=== PATIENT | male | born 1985 | race Caucasian/White ===

== ENCOUNTER 2019-06-07 09:33 | Outpatient (CLI) | payer MEDICARE, MEDICAID, SELFPAY ==
--- NOTE | 2019-06-07 | XR_ITS ---
WS: [id number] LATERAL LUMBAR SPINE: 3 view. Lateral radiographs are performed in upright neutral, flexion and extension to the patient's toleranc e. HISTORY: LUMBAR RADICULOPATHY ACUTE COMPARISON: 07/06/2010 Mild straightening of the normal lumbar lordosis. Disc spaces and vertebral body heights are well ali gned. Moderate disc space narrowing at L5-S1. No instability. XR/XR lumbar spine 2-3V* [id number] IMPRESSION: No lumbar spine instability.
== END 2019-06-07 09:34 | disposition home or self-care (01) ==
LOC: RADOUTREAD 12:27
PROVIDERS: Family Provider Family Medicine; PCP Family Medicine; Visit Provider Family Medicine
DX: M54.16 Radiculopathy, lumbar region (principal)

== ENCOUNTER 2019-06-14 08:14 | Outpatient (CLI) | payer MEDICARE, MEDICAID, SELFPAY ==
--- NOTE | 2019-06-14 08:24 | MR_ITS ---
WS: [id number] MRI LUMBAR SPINE NONCONTRAST TECHNIQUE: Sagittal T1, T2 and STIR imaging. Axial T1 and T2 imaging. CLINICAL INFORMATION: ACUTE LUMBAR RADIUCLOPATHY COMPARISON: None. FINDINGS: Mild lumbar curve. No acute compression. Mild disc bulging L3-4 and L4-5 with small disc protrusions. Tiny annular tear L4-5. Schmorl's nodes in the lower thoracic spine. L1-L2: Mild annular bulging. Tiny annular tear. L2-L3: No significant disc bulging. Spinal canal and foramen are patent. L3-L4: No significant disc bulging. Mild facet arthropathy. Spinal canal and foramen are patent. L3-4: Mild disc bulging. Small central protrusion. Slight narrowing of the left subarticular recess. Mild left and no significant right foraminal narrowing. Mild facet arthropathy. L4-5: Small left pericentral protrusion with tiny annular tear. Slight contact of the left L5 nerve r oot. Mild facet arthropathy. L5-S1: L5 is partially sacralized on the left. Spinal canal and foramen are patent. Small central protrusion cervical spine at C5-C6. MR/MR lumbar spine wo con* [id number] IMPRESSION: 1. Mild lumbar curve. No acute compression. No high-grade central canal stenos is. 2. Left pericentral disc protrusion L3-4 slightly contacts the left subarticul ar recess and traversing left L4 nerve root. Mild left foraminal narrowing. 3. Left pericentral protrusion L4-5 with small annular tear. Slight contact of the left L5 nerve root. Spinal canal is patent. 4. Small central protrusion C5-C6 with mild central canal stenosis. 5. L5 is partially sacralized.
== END 2019-06-14 08:15 | disposition home or self-care (01) ==
LOC: RADWPI 08:20
PROVIDERS: Family Provider Family Medicine; PCP Family Medicine; Visit Provider Family Medicine
DX: M54.16 Radiculopathy, lumbar region (principal); M51.26 Other intervertebral disc displacement, lumbar region; M50.222 Other cervical disc displacement at C5-C6 level
CPT/HCPCS: 72148

== ENCOUNTER 2020-06-22 22:34 | Emergency (ER) | payer MEDICARE, MEDICAID, SELFPAY ==
[2020-06-22 22:45] VITALS: BP 164/88; PULSE 76; RESP 20; TEMP 36.8; O2SAT 98; BMI 40.8
[2020-06-22 23:05] VITALS: BP 163/104; PULSE 91; RESP 18; O2SAT 98
--- NOTE | 2020-06-22 23:13 | ECG_ITS ---
[facility] Test Date: 2020-06-22 Pat Name: Florentin Patton Department: Room: Gender: Male Support Team Member: : 1985 Requested By: Victorino Awan Order Number: [id number] Grisel MD: Christopher Recio M.D. Measurements Intervals Louise Rate: 75 P: 49 TN: 133 QRS: 18 QRSD: 81 T: 44 QT: 368 QTc: 412 Interpretive Statements SINUS RHYTHM WITH SINUS ARRHYTHMIA No previous ECG available for comparison Electronically Signed On 06-24-2020 10:59:59 THERMOFORMING OPERATOR by Christopher Recio M.D. [id number]
--- NOTE | 2020-06-22 23:13 | CTR_ITS ---
PROCEDURE INFORMATION: Exam: CT Head Without Contrast Exam date and time: 06/22/2020 11:15 PM Age: 34 years old Clinical indication: Pain; Dizziness; Headache; Additional info: Syncope, headache x 1 month, increased blood pressure, dizziness, nose bleed tonight. TECHNIQUE: Imaging protocol: Computed tomography of the head without contrast. Radiation optimization: All CT scans at this facility use at least one of these dose optimization techniques: automated exposure control; mA and/or kV adjustment per patient size (includes targeted exams where dose is matched to clinical indication); or iterative reconstruction. COMPARISON: CT head wo con* [id number] 12/26/2018 2:41 AM RADIATION DOSE METRICS: Total DLP (mGy-cm): 788.99 FINDINGS: Brain: Normal. No hemorrhage. Unremarkable white matter. No mass effect. Cerebral ventricles: No ventriculomegaly. Bones/joints: Unremarkable. No acute fracture. Paranasal sinuses: Visualized sinuses are unremarkable. No fluid levels. Mastoid air cells: Visualized mastoid air cells are well aerated. Soft tissues: Unremarkable. CT/CT head wo con* [id number] IMPRESSION: No acute intracranial abnormality. Radiation Dose CTDIVOL = (mGy): DLP = 788.99 (mGy-cm)
[2020-06-22 23:28] LABS: Basophils # 0.1 10^3/uL (0.0-0.1); Basophils % 0.7 %; Eosinophils # 0.3 10^3/uL (0.0-0.8); Eosinophils % 3.3 %; Hematocrit 45.4 % (42.0-52.0); Hemoglobin 15.4 g/dL (11.7-16.6); Lymphocytes # 2.7 10^3/uL (0.8-4.8); Lymphocytes % 35.4 %; Mean Corpuscular HGB Conc 33.9 g/dL (30.0-36.0); Mean Corpuscular Volume 88.3 fL (80-94); Mean Platelet Volume 9.9 fL (7.4-10.4); Monocytes # 0.7 10^3/uL (0.2-0.9); Monocytes % 9.7 %; Neutrophils # 3.79 10^3/uL (1.8-7.7); Neutrophils % 50.6 %; Nucleated Red Blood Cells % 0 %; Platelet Count 239 10^3/cmm (130-400); Red Blood Count 5.14 10^6/uL (4.1-5.3); Red Cell Distribution Width 11.9 % (12.1-15.1); White Blood Count 7.5 10^3/uL (4.0-10.0)
--- NOTE | 2020-06-22 23:30 | W.ED.GENADLT ---
HPI - General Adult General: Chief complaint: General Medical Stated complaint: nosebleed earlier today, now headache/dizziness Time Seen by Provider: 06/22/20 23:02 Source: patient Mode of arrival: ambulatory Limitations: no limitations History of Present Illness: HPI narrative: 34-year-old male states he had a nosebleed today. He states that after the nosebleed he became dizzy and had a near syncopal event. He states had a mild headache since then he rates a 2 out of 10. He states this happened roughly 1 hour ago. Denies any chest pain. He denies any shortness of breath. Associated symptoms: Deny chest pain, dyspnea, headache(s), nausea, rash or vomiting Review of Systems Const: Denies: fever(s), chills, body aches or change in appetite Eyes: Denies: blurry vision or eye discomfort ENMT: Reports: epistaxis; Denies: throat pain or dental pain Card: Denies: chest pain Resp: Denies: dyspnea GI: Denies: abdominal pain, nausea, vomiting or diarrhea : Denies: dysuria Musc: Denies: neck pain or back pain Skin/Breast: Denies: rash Neuro: Denies: headache(s) Psych: Denies: depression Rupert/Lymph: Denies: easy bruising All/Imm: Denies: urticaria Physical Exam Const: COMMON NORMALS: no acute distress, patient oriented x3 and healthy appearing HENMT: COMMON NORMALS: normocephalic and atraumatic HEAD & SCALP: normocephalic and atraumatic Eye: COMMON NORMALS: Equal, round and reactive pupils present and EOMs intact bilaterally PUPIL: Yes Equal, round and reactive pupils present Neck/C-Spine: COMMON NORMALS: full ROM and supple Chest: COMMONS NORMALS: normal inspection of the chest and normal palpation of entire chest wall Resp: COMMON NORMALS: normal respiratory effort, No retractions, No use of accessory muscles and clear to auscultation bilaterally AUSCULTATION: clear to auscultation bilaterally Cardio: COMMON NORMALS: regular rate, regular rhythm and No murmurs present (Cardio) RATE: regular rate RHYTHM: regular rhythm GI: COMMON NORMALS: Normal to inspection, nondistended, normoactive bowel sounds present, Soft to palpation, non-tender and no masses PALPATION: Yes Soft to palpation Extremity: COMMON NORMALS: normal to inspection and full ROM Neuro: COMMON NORMALS: patient oriented x3, moves all extremities and no focal motor deficits Psych: COMMON NORMALS: mental status grossly normal, Normal thought process present and cooperative THOUGHT PROCESS: Normal thought process present Skin: COMMON NORMALS: no rashes or lesions noted and no wounds GENERAL SKIN EXAM: no rashes or lesions noted Course Vital Signs: Vital signs: Vital Signs Temperature 98.2 F 06/22/20 22:45 Pulse Rate 91 06/22/20 23:05 Respiratory Rate 18 06/22/20 23:05 Blood Pressure 163/104 06/22/20 23:05 Pulse Oximetry 98 06/22/20 23:05 MDM - General Adult MDM Narrative: Medical decision making narrative: Florentin presents here with a headache along with nosebleed. His head CT and blood work are all normal. His headache is likely tension headache. Patient's nosebleed is likely from dried naris. I did inform him to use lube or Vaseline. He has no signs of subarachnoid hemorrhage. He is stable for discharge and return if worsening. Lab Data: Labs: Lab Results 06/22/20 Range/Units 23:23 WBC 7.5 (4.0-10.0) 10^3/ uL RBC 5.14 (4.1-5.3) 10^6/u L Hgb 15.4 (11.7-16.6) g/dL Hct 45.4 (42.0-52.0) % MCV 88.3 (80-94) fL MCH 30.0 (28.0-34.0) pg MCHC 33.9 (30.0-36.0) g/dL RDW 11.9 L (12.1-15.1) % Plt Count 239 (130-400) 10^3/c mm MPV 9.9 (7.4-10.4) fL Neut % (Auto) 50.6 % Lymph % (Auto) 35.4 % [place] % (Auto) 9.7 % Eos % (Auto) 3.3 % Baso % (Auto) 0.7 % Neut # (Auto) 3.79 (1.8-7.7) 10^3/u L Lymph # (Auto) 2.7 (0.8-4.8) 10^3/u L [place] # (Auto) 0.7 (0.2-0.9) 10^3/u L Eos # (Auto) 0.3 (0.0-0.8) 10^3/u L Baso # (Auto) 0.1 (0.0-0.1) 10^3/u L Nucleated RBC % (a uto) 0 % Nucleated RBCs # 0.0 /100WBC Imaging Data^: CT Head: Radiologist's impression: [address] [address] [address] Scan Report Signed Patient: Florentin Patton Unit #: [id number] : 1985 Age/Sex: 34 / M ADM Date: 06/22/20 Loc: ER Room/Bed: Attending Dr: Ordering Provider/Ordering MD: Victorino Awan MD Date of Service: 06/22/20 Procedure(s): CT head wo con* [id number] Accession Number(s): [id number] Report Number: [id number] PROCEDURE INFORMATION: Exam: CT Head Without Contrast Exam date and time: 06/22/2020 11:15 PM Age: 34 years old Clinical indication: Pain; Dizziness; Headache; Additional info: Syncope, headache x 1 month, increased blood pressure, dizziness, nose bleed tonight. TECHNIQUE: Imaging protocol: Computed tomography of the head without contrast. Radiation optimization: All CT scans at this facility use at least one of these dose optimization techniques: automated exposure control; mA and/or kV adjustment per patient size (includes targeted exams where dose is matched to clinical indication); or iterative reconstruction. COMPARISON: CT head wo con* [id number] 12/26/2018 2:41 AM RADIATION DOSE METRICS: Total DLP (mGy-cm): 788.99 FINDINGS: Brain: Normal. No hemorrhage. Unremarkable white matter. No mass effect. Cerebral ventricles: No ventriculomegaly. Bones/joints: Unremarkable. No acute fracture. Paranasal sinuses: Visualized sinuses are unremarkable. No fluid levels. Mastoid air cells: Visualized mastoid air cells are well aerated. Soft tissues: Unremarkable. CT/CT head wo con* [id number] IMPRESSION: No acute intracranial abnormality. EKG Data^: EKG 1: Attestation: I personally reviewed and interpreted this EKG as follows: EKG interpretation date: 06/22/20 EKG interpretation time: 23:47 Interpretation: nsr hr [address] or t wave abnormalities qrs 81 qtc 397 Computer generated interpretation: Head CT 06/22/20 23:13 IMPRESSION: No acute intracranial abnormality. Radiation Dose CTDIVOL = (mGy): DLP = 788.99 (mGy-cm) Discharge Plan Discharge Patient Disposition: Home Clinical Impression: Epistaxis, Near syncope Condition: Stable Discharge Orders: Discharge ED (Routine); Ordered 06/22/20 Ordered By: Victorino Awan Referrals: Donta Walker MD [Primary Care Provider] - 1-3 days Discharge Diet: Advance as tolerated Discharge Activity: Resume usual activity Patient Instructions: Epistaxis (ED) Coding Level of Care Code ED Consulting Psychiatrist for Chg Fwd Exam Comprehensive
[2020-06-23] MEDS: acetaminophen 500 mg Tablet 1000 MG PO (00:10)
[2020-06-23 00:13] VITALS: BP 140/82; PULSE 74; RESP 18; O2SAT 96
== END 2020-06-23 00:14 | disposition home or self-care (01) ==
PROVIDERS: Emergency Provider Emergency Medicine; PCP Family Medicine
DX: R04.0 Epistaxis (principal); R55 Syncope and collapse
CPT/HCPCS: 12345; 70450; 85025; 93005; 99281; 99283

== ENCOUNTER 2022-01-06 18:20 | Emergency (ER) | payer MEDICARE, MEDICAID, SELFPAY ==
[2022-01-06 18:24] VITALS: BP 141/100; PULSE 85; RESP 20; TEMP 36.5; O2SAT 98; BMI 43.4
[2022-01-06 18:31] VITALS: BP 141/100; PULSE 85; RESP 20; TEMP 36.5; O2SAT 98
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
--- NOTE | 2022-01-06 18:38 | CTR_ITS ---
PROCEDURE INFORMATION: Exam: CT Cervical Spine Without Contrast Exam date and time: 01/06/2022 6:42 PM Age: 36 years old Clinical indication: Injury or trauma; Fall; Blunt trauma; Additional info: Neck pain after injury to head TECHNIQUE: Imaging protocol: Computed tomography of the cervical spine without contrast. Radiation optimization: All CT scans at this facility use at least one of these dose optimization techniques: automated exposure control; mA and/or kV adjustment per patient size (includes targeted exams where dose is matched to clinical indication); or iterative reconstruction. COMPARISON: CT cervical spin wo con* [id number] 12/26/2018 2:47 AM RADIATION DOSE METRICS: Total DLP (mGy-cm): 276.4 FINDINGS: Bones/joints: Dextroscoliosis. Discs/Spinal canal/Neural foramina: No significant disc protrusion. No severe spinal canal stenosis. No significant neural foraminal narrowing. Lungs: Lung apices are normal. Thyroid: 1.7 cm left thyroid nodule with recommendation for nonemergent thyroid ultrasound to rule out neoplasm. Soft tissues: Unremarkable. CT/CT cervical spin wo con* [id number] IMPRESSION: 1. 1.7 cm left thyroid nodule with recommendation for nonemergent thyroid ultrasound to rule out neoplasm. 2. No acute C-spine findings. COMMENTS: Consistent with the [employer] [employer]'s Incidental Findings Committee white paper (J Am Joni Radiol 2015): In patients under 35 years old with an incidental thyroid nodule equal to or greater than [address], MRI or extrathyroidal US, further evaluation with dedicated thyroid US is recommended for patients with normal life expectancy and without comorbidities. For smaller nodules without suspicious features, no further evaluation or follow up is recommended.
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
[2022-01-06] MEDS: tetanus-dipt-pertussis 0.5 mL SDV IM (20:08)
[2022-01-06] MEDS: ketorolac 30 mg/mL INJ IVP (20:08)
[2022-01-06 21:05] VITALS: BP 137/99; PULSE 99; RESP 16; O2SAT 98
== END 2022-01-06 21:07 | disposition home or self-care (01) ==
PROVIDERS: Emergency Provider Physician Assistant; PCP Family Medicine
DX: S06.9X9A Unspecified intracranial injury with loss of consciousness of unspecified duration, initial encounter (principal); E04.1 Nontoxic single thyroid nodule; S01.01XA Laceration without foreign body of scalp, initial encounter; W20.8XXA Other cause of strike by thrown, projected or falling object, initial encounter; Z23 Encounter for immunization
CPT/HCPCS: 70450; 72125; 90471; 90715; 96374; 99284; J1885

== ENCOUNTER 2022-10-10 15:51 | Inpatient (IN) | payer MEDICARE, MEDICAID, SELFPAY ==
[2022-10-10 15:57] VITALS: BP 138/95; PULSE 67; RESP 17; TEMP 36.8; O2SAT 98
--- NOTE | 2022-10-10 16:12 | ED.C_ITS ---
HPI - Psych General: Chief Complaint: Psychiatric Symptoms Stated Complaint: SI Time Seen by Provider: 10/10/22 16:12 History of Present Illness: Mr. Patton is a 37-year-old gentleman presented to the emergency department via EMS for mental health exam. The patient himself reports that there was a miscommunication that led to lawn for cement and subsequently EMS being involved. He reports being upset earlier with regards to relationship problems and told his dad that he just wanting to go . He reports that this was in reference to just going out for a drive or clearing his mind and not a suicidal statement. He subsequently called his ex and felt more calm after the sub sequent conversation however law enforcement found the patient in his truck and he was brought in for further evaluation. In his truck he did have a knife along with other personal items such as close that he reported that he collected from his father's house as he had left them there. He adamantly denies suicidal plan, attempt, intent. No other specific changes in health, exacerbating, or alleviating factors identified. Review of Systems General: Reports: 10 or more systems reviewed and unremarkable except in HPI and below PFS ED PFSH: Medical History (Updated 10/16/22 @ 00:01 by JOSE Crain) No pertinent family history Surgical History (Updated 01/06/22 @ 18:46 by NICCI Ramirez) No pertinent past surgical history Social History Smoking and tobacco status: never smoked Second hand smoke exposure: No Alcohol intake: never Desire information about alcohol rehabilitation?: No Substance/Drug Use: never Desire information about substance/drug rehabilitation?: No Physical Exam Const: COMMON NORMALS: alert GENERAL APPEARANCE: cooperative and well developed HENMT: COMMON NORMALS: normocephalic and atraumatic HEAD & SCALP: normocephalic and atraumatic Eye: COMMON NORMALS: conjunctivae normal CONJUNCTIVA: Yes conjunctivae normal SCLERA: sclerae normal Neck/C-Spine: COMMON NORMALS: supple GENERAL: Yes trachea midline Resp: COMMON NORMALS: normal respiratory effort EFFORT & INSPECTION: Yes able to speak in complete sentences Cardio: COMMON NORMALS: regular rate and regular rhythm RATE: regular rate RHYTHM: regular rhythm GI: COMMON NORMALS: Soft to palpation PALPATION: Yes Soft to palpation and No Tenderness to palpation present (GI) Extremity: GENERAL: Yes normal exam except as noted and No edema Neuro: COMMON NORMALS: moves all extremities SENSORIUM/ORIENTATION: Yes alert and No Orientation impaired Psych: COMMON NORMALS: mental status grossly normal and Normal thought process present THOUGHT PROCESS: Normal thought process present Course Vital Signs: Vital signs: Vital Signs Temperature 98.0 F 10/15/22 14:32 Pulse Rate 80 10/15/22 14:32 Respiratory Rate 14 10/15/22 14:32 Blood Pressure 120/82 10/15/22 14:32 Pulse Oximetry 97 10/15/22 14:32 Oxygen Delivery Me thod Room Air 10/15/22 14:00 MDM - Psych Medical Decision Making 37-year-old gentleman presenting for mental health exam. Patient is calm and cooperative. He largely minimizes symptoms. Supplemental information provided by patient's ex is that he has made more specific statements regarding wanting to and having knife. Labs demonstrate no significant hematologic or metabolic abnormality. TSH is normal. Urine drug screen and toxic ingestions are negative. \ Given physical exam and clinical history provided there is no indication for imaging at this time. Based on ED evaluation at this point there is no obvious condition that would preclude the patient from inpatient management of psychiatric concerns/symptoms. Patient requires inpatient evaluation of psychiatric for reasonable degree of safety. Medical Records I reviewed the patient's medical records. Lab Data I reviewed the patient's lab results. 10/10/22 18:20 10/10/22 18:20 Laboratory Results Urine Opiates Screen Negative ng/mL (Negative) 10/10/22 17:58 Ur Barbiturates Screen Negative ng/mL (Negative) 10/10/22 17:58 Ur Phencyclidine Scrn Negative ng/mL (Negative) 10/10/22 17:58 Ur Amphetamines Screen Negative ng/mL (Negative) 10/10/22 17:58 U Benzodiazepines Scrn Negative ng/mL (Negative) 10/10/22 17:58 Urine Cocaine Screen Negative ng/mL (Negative) 10/10/22 17:58 U Marijuana (THC) Screen Negative ng/mL (Negative) 10/10/22 17:58 Discharge Plan Discharge Patient Disposition: Admitted As Inpatient Admit Provider: Tomás Swanson Clinical Impression: Suicidal ideation Condition: Stable Discharge Diet: Regular Discharge Activity: Resume usual activity Coding Level of Care Code ED Well Treatment Offsider for Alexander Wolfe
[2022-10-10 18:05] VITALS: BP 142/84; PULSE 64; RESP 18; O2SAT 98
[2022-10-10 18:24] LABS: Amphetamines Screen Urine Negative (Negative); Barbiturates Screen Urine Negative (Negative); Benzodiazepines Screen Urine Negative (Negative); Cocaine Screen Urine Negative (Negative); Opiate Screen Urine Negative (Negative); PCP Screen Urine Negative (Negative); THC Screen Urine Negative (Negative)
[2022-10-10 18:31] LABS: Basophils # 0.1 10^3/uL (0.0-0.1); Basophils % 0.7 %; Eosinophils # 0.1 10^3/uL (0.0-0.8); Eosinophils % 0.7 %; Hematocrit 49.3 % (42.0-52.0); Hemoglobin 16.6 g/dL (11.7-16.6); Lymphocytes # 1.9 10^3/uL (0.8-4.8); Lymphocytes % 24.9 %; Mean Corpuscular HGB Conc 33.7 g/dL (30.0-36.0); Mean Corpuscular Hemoglobin 29.9 pg (28.0-34.0); Mean Corpuscular Volume 88.7 fl (80-94); Mean Platelet Volume 9.4 fL (7.4-10.4); Monocytes # 0.9 10^3/uL (0.2-0.9); Neutrophils % 61.3 %; Nucleated Red Blood Cells % 0 %; Platelet Count 273 10^3/cmm (130-400); Red Blood Count 5.56 10^6/uL (4.1-5.3); Red Cell Distribution Width 12.2 % (12.1-15.1); White Blood Count 7.5 10^3/uL (4.0-10.0)
--- NOTE | 2022-10-10 18:57 | PC.NURSE ---
REPORT GIVEN TO [facility].
[2022-10-10 18:58] LABS: Alanine Aminotransferase 42 U/L (0-41); Albumin Level 4.9 g/dL (3.5-5.2); Alkaline Phosphatase 84 U/L (40-130); Aspartate Amino Transferase 28 U/L (0-40); Blood Urea Nitrogen 15 mg/dL (6-20); Calcium 9.8 mg/dL (8.5-10.5); Carbon Dioxide 27 mmol/L (22-29); Chloride 101 mmol/L (98-107); Globulin 3.2 g/dL (1.3-4.6); Glucose 106 mg/dL (65-115); Osmolality Calculated 295 mOsm/kg (285-295); Sodium 142 mmol/L (136-145); Total Bilirubin 0.8 mg/dL (0.15-1.2); Total Protein 8.1 g/dL (6.6-8.7)
[2022-10-10 19:04] LABS: Acetaminophen < 5.0 ug/mL (10-30); Alcohol Level < 10 mg/dL (0-10); Salicylate < 0.3 mg/dL (3-10)
--- NOTE | 2022-10-10 19:22 | PC.NURSE ---
report called by previous nurse.
[2022-10-10 19:33] VITALS: BP 147/106; PULSE 70; RESP 20; TEMP 36.8; O2SAT 99
[2022-10-10 20:51] LABS: Thyroid Stimulating Hormone 2.54 uIU/mL (0.27-4.20)
--- NOTE | 2022-10-11 05:32 | P.NPUHP_ITS ---
Providers/Chief Complaint Admitting Physician: Tomás Swanson MD Primary Care Provider: Donta Walker MD Chief Complaint: SI HPI NPU History of Present Illness Florentin Patton is a 37 year old male who presented to the emergency department with the following report: He was admitted to the neuropsychiatric unit for definitive treatment of those issues. The patient presents today reporting that he is here because of a misunderstanding. He reports that he talked to his dad on the phone, and the patient made a statement about doing something to get away from people, and he reports that his dad ?blew up about it.? His father then called the director workforce management?s department and told them that his son was going to commit suicide. The patient reports that he was pulled over on the side of the road, talking on the phone to his ex, who he said is a good friend now and he can talk to her if he is upset. He reports that his sister tried to call him twice, his dad tried to call him twice, and his ?real mom? tried to call him twice, so they had the idea that he was going to do something stupid, that he states he was not going to do. He stated that he has a 2-year-old boy to live for and he wants to get help with ?the demons? he has and get better for his son. He endorses that he has stress and problems with anger. He denies ever having a previous psychiatric hospitalization. He reports that he had some treatment at [facility], years ago, for about six to eight months. He reports that he was on medication then. He reports that he had improvement and he ?got over it,? and moved on. He reports that the counselor told him he was 100% better than what he was when he started. He reports that he has used tobacco in the past, he used to smoke cigarettes but re ports that was years ago, and he used to vape and quit that six months ago. He reports that he started chewing tobacco when he was 18 years old and stopped when he was 20 or 21 years old. He then started smoking cigarettes until he quit cold turkey years ago. He denies recent alcohol use, he stated the last time was four to five months ago and denies that he ever drank heavily. He denies marijuana use, except for experimentation when he was younger. He denies methamphetamine, opiates, pain pills or any other illicit drug use. He denies any drug rehabilitation, DUI, or drug related charges. He reports that his recent anger issues started when his ex left him earlier in the month, although he wasn?t angry at first, but then she called him a few days ago and asked if he still had feelings for her and he told her yes and asked why. She said she wanted to get back together, and he replied that she broke his heart once and he did not want to go through that again, but he said yes, he would try again. He reports that the man she was with brought her to his house with her son and her belongings, and she said she wanted to be with the patient and no one else. Then he reports that she was crying all night, he thinks because she was still thinking of the other man. But he still wanted to give her a chance. He then went to his dads to get his stuff and she promised to be there with his son when he got back. But when he got back, she was not there. He then told his dad he was going to get his fishing poles and wanted to be alone and didn?t feel like he had anything to live for anymore. He said his ex then called and asked if was okay, and they have been talking ever since, and they have decided to be friends for their son. He again talked about wanting to get better, but did not really define exactly what that means, other than wanting to be a better person and not be angry. He reports that he has been diagnosed with ADHD and takes medication for that. PSYCHIATRIC HISTORY: As above. SUBSTANCE ABUSE HISTORY: As above. FAMILY HISTORY: He reports that there are mental health and addiction issues on his father?s side of the family. DEVELOPMENTAL HISTORY: The patient denies any issues with his mother?s or delivery of him. He reports that he did not start talking until he was 4 to 5 years old. The patient denies speech therapy, learning support, emotional support, but endorses special education classes. PSYCHOSOCIAL HISTORY: The patient reports that his mother and father were together when he was born. He reports that they had two children together, him and his sister. He reports that he has a half-sister through his father, and his mother had no more biological children. He reports that his grandmother raised them. He describes his childhood as pretty good; they didn?t always get what they wanted but learned the value of a dollar. He denies emotional, physical, or sexual abuse. He reports that he graduated from high school. He endorses being heterosexual, with the longest relationship being three years. He has not been . He has one biological child, a boy who is almost 3 years old. He denies service. He goes to [employer]. 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 He is currently disabled and on SSI, for learning disability and deteriorated discs. He reports that he is going to live in place his grandmother left for him. LEGAL HISTORY: Denied. MEDICAL HISTORY: Deteriorated discs. High blood pressure. Meds NPU Home Medications Medication Instructions Recorded Confirmed Last Taken Type fluoxetine 20 mg capsule 20 mg PO DAILY 10/10/22 10/10/22 10/09/22 History methylphenidate HCl 54 mg 54 mg PO DAILY 10/10/22 10/10/22 10/09/22 History tablet,extended release 24 hr omeprazole 40 mg capsule,delayed 40 mg PO DAILY 10/10/22 10/10/22 Unknown History release Allergies Allergy/AdvReac Type Severity Reaction Status Date / Time No Known Allergies Allergy Verified 10/10/22 16:00 PFS NPU PFS: Medical History (Updated 10/12/22 @ 17:35 by Tomás Swanson MD) No pertinent family history Surgical History (Updated 01/06/22 @ 18:46 by NICCI Ramirez) No pertinent past surgical history Social History Smoking and tobacco status: never smoked Second hand smoke exposure: No Alcohol intake: never Desire information about alcohol rehabilitation?: No Substance/Drug Use: never Desire information about substance/drug rehabilitation?: No Mental Status Exam MSE Comments: This is an obese versus morbidly obese white male, in hospital scrubs, with limited grooming and eye contact. Notable smell when speaks of halitosis even at a distance. No abnormal movements except for mild psychomotor retardation. Cooperative with exam in mild distress. Speech was normal rate and volume. Mood described as excellent; affect anxious. Thought process, organized. Thought content: patient denied any suicidal or homicidal ideation, there were no delusions reported or noted, patient denied any auditory or visual hallucinations. Attention, concentration, and memory appeared purposely unrelia ble but none were formally tested. Alert and oriented times three. Insight and judgment are limited. Impulse control is impaired. Vitals/I&O/Wt Last Vital Signs Temp 98.2 F 10/10/22 19:33 Pulse 70 10/10/22 19:33 Resp 20 H 10/10/22 19:33 BP 147/106 10/10/22 19:33 Pulse Ox 99 10/10/22 19:33 O2 Del Method Room Air 10/10/22 19:34 Weight last 48 hrs Weight 146.964 kg Data NPU 10/10/22 18:20 10/10/22 18:20 A&P Assessment and plan (1) Suicidal ideation: (2) ADHD: (3) Borderline intellectual functioning: (4) Partner relational problem: (5) Intermittent explosive disorder: Plan This is a 37-year-old white male with a reported history of ADHD and borderline intellectual functioning versus intellectual disability mild and self-reported anger issues who presents on a 96-hour hold reporting that this is a misunderstanding and that the information in the affidavits are false or at worst is needing desiring to be discharged without intervention except possibly a referral to services for anger management. 1. Continue current medication. 2. Encourage individual, group, and milieu therapy. 3. Continue q-15 minute checks for safety. Involuntary Hold Information 96 Hour Hold: 96 Hour Involuntary Admission: Yes 96 Hour Hold Ending Date: 10/16/22 96 Hour Hold Ending Time: 17:51 Attestations NPU Medical Necessity Statement*: Inpatient hospitalization is medically necessary and the clinically appropriate intervention, at this time. We will monitor medications and make changes as indicated. Patient will be in the hospital for over two midnights. Likely length of stay is three to five days. Coding Level of Care Code Acute Code for Chg Fwd Diagnoses Suicidal ideation R45.851 ADHD F90.9 Borderline intellectual functioning R41.83 Partner relational problem Z63.0 Intermittent explosive disorder F63.81
[2022-10-11 06:00] VITALS: RESP 16
[2022-10-11] MEDS: pantoprazole DR 40 mg Tablet PO (09:50)
[2022-10-11] MEDS: fluoxetine 20 mg Capsule PO (09:50)
[2022-10-11] MEDS: NON-FORMULARY MEDICATION (Methylphenidate Hcl 54 mg tablet extended release 24hr) 54 EACH PO (10:09)
[2022-10-11 14:00] VITALS: BP 145/112; PULSE 110; RESP 16; TEMP 36.8; O2SAT 97
[2022-10-11 22:00] VITALS: RESP 16
[2022-10-12 06:00] VITALS: RESP 12
[2022-10-12] MEDS: fluoxetine 20 mg Capsule PO (09:04)
[2022-10-12] MEDS: pantoprazole DR 40 mg Tablet PO (09:04)
[2022-10-12] MEDS: NON-FORMULARY MEDICATION (Methylphenidate Hcl 54 mg tablet extended release 24hr) 54 EACH PO (09:06)
--- NOTE | 2022-10-12 09:19 | PC.NURSE ---
pt was cooperative with assessment and willing to anwser questions. pt currently denies si/hi/ah/vh. pt stated i am feeling anxious and depressed about being her. I would like to get out of here to be able to do the things i need to do outside . This RN asked about what he was needing to do outside of here. pt stated I need to go to my place and get my stuff so i can move to my dads. This RN explained that the doctor will determine if pt is ready for discharge. pt verbalized understanding.
[2022-10-12 14:00] VITALS: BP 125/83; PULSE 74; RESP 20; TEMP 37.1; O2SAT 99
--- NOTE | 2022-10-12 17:35 | W.PM.NPUPNS ---
Subjective NPU Subjective: Patient presented today reporting that things are going well until he conversation about his report of the reason for him being here being a miscommunication. We reached out to his significant other and she confirmed her statements and additionally confirmed that he had asked her to lie about what she has reported in the document. We discussed the need for us to work on issues related to the 96-hour hold. He was somewhat frustrated about having to stay. Mental Status Exam MSE Comments: This is an obese versus morbidly obese white male, in hospital scrubs, with limited grooming and eye contact. Notable smell when speaks of halitosis even at a distance. No abnormal movements except for mild psychomotor retardation. Cooperative with exam in mild distress. Speech was normal rate and volume. Mood described as okay; affect anxious and frustrated. Thought process, organized. Thought content: patient denied any suicidal or homicidal ideation, there were no delusions reported or noted, patient denied any auditory or visual hallucinations. Attention, concentration, and memory appeared purposely unreliable but none were formally tested. Alert and oriented times three. Insight and judgment are limited. Impulse control is impaired. Vitals/I&O/Wt Last Vital Signs Temp 98.7 F 10/12/22 14:00 Pulse 74 10/12/22 14:00 Resp 20 H 10/12/22 14:00 BP 125/83 10/12/22 14:00 Pulse Ox 99 10/12/22 14:00 O2 Del Method Room Air 10/12/22 14:00 Data NPU 10/10/22 18:20 10/10/22 18:20 A&P Assessment and plan (1) Suicidal ideation: (2) ADHD: (3) Borderline intellectual functioning: (4) Partner relational problem: (5) Intermittent explosive disorder: Plan This is a 37-year-old white male with a reported history of ADHD and borderline intellectual functioning versus intellectual disability mild and self-reported anger issues who presents on a 96-hour hold reporting that this is a misunderstanding and that the information in the affidavits are false or at worst is needing desiring to be discharged without intervention except possibly a referral to services for anger management. 1. Continue current medication. 2. Encourage individual, group, and milieu therapy. 3. Continue q-15 minute checks for safety. 4. Evaluate for safety on the grounds of the 96-hour hold. Involuntary Hold Information 96 Hour Hold: 96 Hour Involuntary Admission: Yes 96 Hour Hold Ending Date: 10/16/22 96 Hour Hold Ending Time: 17:51 Attestations NPU Medical Necessity Statement*: Inpatient hospitalization is medically necessary and the clinically appropriate intervention, at this time. We will monitor medications and make changes as indicated. Likely length of stay is 2-4 days. Coding Level of Care Code Acute Code for Chg Fwd Diagnoses Suicidal ideation R45.851 ADHD F90.9 Borderline intellectual functioning R41.83 Partner relational problem Z63.0 Intermittent explosive disorder F63.81
[2022-10-12 22:00] VITALS: BP 134/88; PULSE 72; RESP 116; O2SAT 95
[2022-10-13 05:57] VITALS: RESP 15
[2022-10-13 06:00] VITALS: BMI 43.9
--- NOTE | 2022-10-13 08:19 | P.NPUPN_ITS ---
Subjective NPU Subjective: Patient presented today reporting that he is doing fine. After significant wrangling he eventually was able to acknowledge that the things in the 96-hour hold affidavit by girlfriend were mostly accurate. He now that he had asked her to be inconsistent with her affidavit so that he can get out. We discussed that being inconsistent with his report that he wanted to get better in regards to his intermittent explosiveness/anger issues. We discussed the social work team returning tomorrow and that being able to get him connected with resources prior to discharge early this week. Mental Status Exam MSE Comments: This is an obese versus morbidly obese white male, in hospital scrubs, with l imited grooming and eye contact. Notable smell when speaks of halitosis even at a distance. No abnormal movements except for mild psychomotor retardation. Cooperative with exam in mild distress. Speech was normal rate and volume. Mood described as okay; affect anxious and frustrated. Thought process, organized. Thought content: patient denied any suicidal or homicidal ideation, there were no delusions reported or noted, patient denied any auditory or visual hallucinations. Attention, concentration, and memory becoming more reliable but none were formally tested. Alert and oriented times three. Insight and judgment are limited. Impulse control is impaired. Vitals/I&O/Wt Last Vital Signs Temp 98.7 F 10/12/22 14:00 Pulse 72 10/12/22 22:00 Resp 15 10/13/22 05:57 BP 134/88 10/12/22 22:00 Pulse Ox 95 10/12/22 22:00 O2 Del Method Room Air 10/12/22 22:00 Data NPU 10/10/22 18:20 10/10/22 18:20 A&P Assessment and plan (1) Suicidal ideation: (2) ADHD: (3) Borderline intellectual functioning: (4) Partner relational problem: (5) Intermittent explosive disorder: Plan This is a 37-year-old white male with a reported history of ADHD and borderline intellectual functioning versus intellectual disability mild and self-reported anger issues who presents on a 96-hour hold reporting that this is a misunderstanding and that the information in the affidavits are false or at worst is needing desiring to be discharged without intervention except possibly a referral to services for anger management. 1. Continue current medication. 2. Encourage individual, group, and milieu therapy. 3. Continue q-15 minute checks for safety. 4. Evaluate for safety on the grounds of the 96-hour hold. Involuntary Hold Information 96 Hour Hold: 96 Hour Involuntary Admission: Yes 96 Hour Hold Ending Date: 10/16/22 96 Hour Hold Ending Time: 17:51 Attestations NPU Medical Necessity Statement*: Inpatient hospitalization is medically necessary and the clinically appropriate intervention, at this time. We will monitor medications and make changes as indicated. Likely length of stay is 1-3 days. Coding Level of Care Code Acute Code for Chg Fwd Diagnoses Suicidal ideation R45.851 ADHD F90.9 Borderline intellectual functioning R41.83 Partner relational problem Z63.0 Intermittent explosive disorder F63.81
[2022-10-13] MEDS: fluoxetine 20 mg Capsule PO (08:41)
[2022-10-13] MEDS: pantoprazole DR 40 mg Tablet PO (08:41)
[2022-10-13] MEDS: NON-FORMULARY MEDICATION (Methylphenidate Hcl 54 mg tablet extended release 24hr) 54 EACH PO (08:42)
[2022-10-13 14:00] VITALS: BP 120/79; PULSE 75; RESP 16; TEMP 36.9; O2SAT 97
[2022-10-13 20:14] VITALS: BP 122/83; PULSE 64; RESP 18; TEMP 36.7; O2SAT 98
[2022-10-14] MEDS: pantoprazole DR 40 mg Tablet PO (08:30)
[2022-10-14] MEDS: fluoxetine 20 mg Capsule PO (08:30)
[2022-10-14] MEDS: NON-FORMULARY MEDICATION (Methylphenidate Hcl 54 mg tablet extended release 24hr) 54 EACH PO (08:35)
[2022-10-14 14:00] VITALS: BP 117/83; PULSE 93; RESP 18; TEMP 36.8; O2SAT 98
--- NOTE | 2022-10-14 16:41 | W.PM.NPUPNS ---
Subjective NPU Subjective: Patient presented today reporting that he is doing better. He has been more able to identify some of the challenges that brought him to the hospital. He worked with the social work team today and getting appropriate outpatient follow-up. We discussed likely discharge tomorrow. Mental Status Exam MSE Comments: This is an obese versus morbidly obese white male, in hospital scrubs, with limited grooming and eye contact. Notable smell when speaks of halitosis even at a distance. No abnormal movements except for mild psychomotor retardation. Cooperative with exam in mild distress. Speech was normal rate and volume. Mood described as doing better; affect congruent. Thought process, organized. Thought content: patient denied any suicidal or homicidal ideation, there were no delusions reported or noted, patient denied any auditory or visual hallucinations. Attention, concentration, and memory becoming more reliable but none were formally tested. Alert and oriented times three. Insight and judgment are limited, but improving. Impulse control is impaired, but improving. Vitals/I&O/Wt Last Vital Signs Temp 98.3 F 10/14/22 20:33 Pulse 86 10/14/22 20:33 Resp 18 10/14/22 20:33 BP 122/71 10/14/22 20:33 Pulse Ox 95 10/14/22 20:33 O2 Del Method Room Air 10/14/22 20:33 Weight last 48 hrs Weight 146.964 kg Data NPU 10/10/22 18:20 10/10/22 18:20 A&P Assessment and plan (1) Suicidal ideation: (2) ADHD: (3) Borderline intellectual functioning: (4) Partner relational problem: (5) Intermittent explosive disorder: Plan This is a 37-year-old white male with a reported history of ADHD and borderline intellectual functioning versus intellectual disability mild and self-reported anger issues who presents on a 96-hour hold reporting that this is a misunderstanding and that the information in the affidavits are false or at worst is needing desiring to be discharged without intervention except possibly a referral to services for anger management. 1. Continue current medication. Recommend consideration of a mood stabilizer by the outpatient team. 2. Encourage individual, group, and milieu therapy. 3. Continue q-15 minute checks for safety. 4. Evaluate for safety on the grounds of the 96-hour hold. Plan for discharge tomorrow. Involuntary Hold Information 96 Hour Hold: 96 Hour Involuntary Admission: Yes 96 Hour Hold Ending Date: 10/16/22 96 Hour Hold Ending Time: 17:51 Attestations NPU Medical Necessity Statement*: Inpatient hospitalization is medically necessary and the clinically appropriate intervention, at this time. We will monitor medications and make changes as indicated. Likely length of stay is 1-2 days. Coding Level of Care Code Acute Code for Chg Fwd Diagnoses Suicidal ideation R45.851 ADHD F90.9 Borderline intellectual functioning R41.83 Partner relational problem Z63.0 Intermittent explosive disorder F63.81
[2022-10-14 20:33] VITALS: BP 122/71; PULSE 86; RESP 18; TEMP 36.8; O2SAT 95
[2022-10-15] MEDS: fluoxetine 20 mg Capsule PO (08:09)
[2022-10-15] MEDS: NON-FORMULARY MEDICATION (Methylphenidate Hcl 54 mg tablet extended release 24hr) 54 EACH PO (08:09)
[2022-10-15] MEDS: pantoprazole DR 40 mg Tablet PO (08:09)
--- NOTE | 2022-10-15 12:16 | DCPLANNER ---
IMM was printed and explained and give to pt and copy put in file.
--- NOTE | 2022-10-15 13:17 | P.NPUDS_ITS ---
Diagnoses at Discharge Discharge Diagnosis (1) Suicidal ideation: Status: Resolved (2) ADHD: Status: Acute (3) Borderline intellectual functioning: Status: Acute (4) Partner relational problem: Status: Acute (5) Intermittent explosive disorder: Status: Acute Reason for Visit Reason for Visit: SI Brief History: History of Present Illness Florentin Patton is a 37 year old male who presented to the emergency department with the following report: He was admitted to the neuropsychiatric unit for definitive treatment of those issues. The patient presents today reporting that he is here because of a misunderstanding. He reports that he talked to his dad on the phone, and the patient made a statement about doing something to get away from people, and he reports that his dad ?blew up about it.? His father then called the electric welder helper?s department and told them that his son was going to commit suicide. The patient reports that he was pulled over on the side of the road, talking on the phone to his ex, who he said is a good friend now and he can talk to her if he is upset. He reports that his sister tried to call him twice, his dad tried to call him twice, and his ?real mom? tried to call him twice, so they had the idea that he was going to do something stupid, that he states he was not going to do. He stated that he has a 2-year-old boy to live for and he wants to get help with ?the demons? he has and get better for his son. He endorses that he has stress and problems with anger. He denies ever having a previous psychiatric hospitalization. He reports that he had some treatment at [facility], years ago, for about six to eight months. He reports that he was on medication then. He reports that he had improvement and he ?got over it,? and moved on. He reports that the counselor told him he was 100% better than what he was when he started. He reports that he has used tobacco in the past, he used to smoke cigarettes but reports that was years ago, and he used to vape and quit that six months ago. He reports that he started chewing tobacco when he was 18 years old and stopped when he was 20 or 21 years old. He then started smoking cigarettes until he quit cold turkey years ago. He denies recent alcohol use, he stated the last time was four to five months ago and denies that he ever drank heavily. He denies marijuana use, except for experimentation when he was younger. He denies methamphetamine, opiates, pain pills or any other illicit drug use. He denies any drug rehabilitation, DUI, or drug related charges. He reports that his recent anger issues started when his ex left him earlier in the month, although he wasn?t angry at first, but then she called him a few days ago and asked if he still had feelings for her and he told her yes and asked why. She said she wanted to get back together, and he replied that she broke his heart once and he did not want to go through that again, but he said yes, he would try again. He reports that the man she was with brought her to his house with her son and her belongings, and she said she wanted to be with the patient and no one else. Then he reports that she was crying all night, he thinks because she was still thinking of the other man. But he still wanted to give her a chance. He then went to his dads to get his stuff and she promised to be there with his son when he got back. But when he got back, she was not there. He then told his dad he was going to get his fishing poles and wanted to be alone and didn?t feel like he had anything to live for anymore. He said his ex then called and asked if was okay, and they have been talking ever since, and they have decided to be friends for their son. He again talked about wanting to get better, but did not really define exactly what that means, other than wanting to be a better person and not be angry. He reports that he has been diagnosed with ADHD and takes medication for that. PSYCHIATRIC HISTORY: As above. SUBSTANCE ABUSE HISTORY: As above. FAMILY HISTORY: He reports that there are mental health and addiction issues on his father?s side of the family. DEVELOPMENTAL HISTORY: The patient denies any issues with his mother?s or delivery of him. He reports that he did not start talking until he was 4 to 5 years old. The patient denies speech therapy, learning support, emotional support, but endorses special education classes. PSYCHOSOCIAL HISTORY: The patient reports that his mother and father were together when he was born. He reports that they had two children together, him and his sister. He reports that he has a half-sister through his father, and his mother had no more biological children. He reports that his grandmother raised them. He describes his childhood as pretty good; they didn?t always get what they wanted but learned the value of a dollar. He denies emotional, physical, or sexual abuse. He reports that he graduated from high school. He endorses being heterosexual, with the longest relationship being three years. He has not been . He has one biological child, a boy who is almost 3 years old. He denies service. He goes to [employer]. 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 He is currently disabled and on SSI, for learning disability and deteriorated discs. He reports that he is going to live in place his grandmother left for him. LEGAL HISTORY: Denied. MEDICAL HISTORY: Deteriorated discs. High blood pressure. Hospital Course Hospital Course Patient slowly acclimated to the individual, group and milieu therapies provided.? He presented with a significant psychosocial stressor of being angry With the mother of his son. Initially he lied about what he said which led to t he 96-hour hold. He slowly came around to tell the truth allowing us to talk about his anger issues and low frustration tolerance. We restarted his medications which it is unclear if he has been totally adherent with. He worked with the social work team to come up with appropriate discharge and follow-up options. He had significant improvement and was able to contract for safety outside of the hospital prior to discharge.? During the hospitalization, he had routine laboratory studies which were within normal limits except for a few outliers.? Additionally he had general medical evaluation which was also within normal limits and revealed no new acute processes. At the time of discharge, he denied any lethality and he was absent psychosis.? Mood and anxiety were well managed and he endorsed a plan to avoid all drugs of abuse, and follow-up with the recommended post hospital services.? He was evaluated and deemed to be absent credible lethality and had received the maximum benefit from an inpatient hospitalization, so was discharged. Involuntary Hold Information 96 Hour Hold: 96 Hour Involuntary Admission: Yes 96 Hour Hold Ending Date: 10/16/22 96 Hour Hold Ending Time: 17:51 Mental Status Exam MSE Comments: This is an obese versus morbidly obese white male, in hospital scrubs, with limited grooming and eye contact. Notable smell when speaks of halitosis even at a distance. No abnormal movements except for mild psychomotor retardation. Cooperative with exam in no acute distress. Speech was normal rate and volume. Mood described as doing better; affect congruent. Thought process, organized. Thought content: patient denied any suicidal or homicidal ideation, there were no delusions reported or noted, patient denied any auditory or visual hallucinations. Attention, concentration, and memory becoming more reliable but none were formally tested. Alert and oriented times three. Insight and judgment are limited, but improving. Impulse control is impaired, but improving. Discharge Data Studies Completed and Pending: Laboratory Results WBC 7.5 10^3/uL (4.0- 10.0) 10/10/22 18:20 RBC 5.56 10^6/uL (4.1 -5.3) H 10/10/22 18:20 Hgb 16.6 g/dL (11.7-1 6.6) 10/10/22 18:20 Hct 49.3 % (42.0-52.0 ) 10/10/22 18:20 MCV 88.7 fl (80-94) 10/10/22 18:20 MCH 29.9 pg (28.0-34. 0) 10/10/22 18:20 MCHC 33.7 g/dL (30.0-3 6.0) 10/10/22 18:20 RDW 12.2 % (12.1-15.1 ) 10/10/22 18:20 Plt Count 273 10^3/cmm (130 -400) 10/10/22 18:20 MPV 9.4 fL (7.4-10.4) 10/10/22 18:20 Neut % (Auto) 61.3 % 10/10/22 18:20 Lymph % (Auto) 24.9 % 10/10/22 18:20 Stewart % (Auto) 12.0 % 10/10/22 18:20 Eos % (Auto) 0.7 % 10/10/22 18:20 Baso % (Auto) 0.7 % 10/10/22 18:20 Neut # (Auto) 4.60 10^3/uL (1.8 -7.7) 10/10/22 18:20 Lymph # (Auto) 1.9 10^3/uL (0.8- 4.8) 10/10/22 18:20 Stewart # (Auto) 0.9 10^3/uL (0.2- 0.9) 10/10/22 18:20 Eos # (Auto) 0.1 10^3/uL (0.0- 0.8) 10/10/22 18:20 Baso # (Auto) 0.1 10^3/uL (0.0- 0.1) 10/10/22 18:20 Nucleated RBC % (a uto) 0 % 10/10/22 18:20 Nucleated RBCs # 0.0 /100WBC 10/10/22 18:20 Sodium 142 mmol/L (136-1 45) 10/10/22 18:20 Potassium 4.0 mmol/L (3.5-5 .1) 10/10/22 18:20 Chloride 101 mmol/L (98-10 7) 10/10/22 18:20 Carbon Dioxide 27 mmol/L (22-29) 10/10/22 18:20 Anion Gap 18.0 (5-19) 10/10/22 18:20 BUN 15 mg/dL (6-20) 10/10/22 18:20 Creatinine 1.0 mg/dL (0.7-1. 2) 10/10/22 18:20 GFR Calculation 85.0 mL/min (90-1 30) L 10/10/22 18:20 Glucose 106 mg/dL (65-115 ) 10/10/22 18:20 Calculated Osmolal ity 295 mOsm/kg (285- 295) 10/10/22 18:20 Calcium 9.8 mg/dL (8.5-10 .5) 10/10/22 18:20 Total Bilirubin 0.8 mg/dL (0.15-1 .2) 10/10/22 18:20 AST 28 U/L (0-40) 10/10/22 18:20 ALT 42 U/L (0-41) H 10/10/22 18:20 Alkaline Phosphata se 84 U/L (40-130) 10/10/22 18:20 Total Protein 8.1 g/dL (6.6-8.7 ) 10/10/22 18:20 Albumin 4.9 g/dL (3.5-5.2 ) 10/10/22 18:20 Globulin 3.2 g/dL (1.3-4.6 ) 10/10/22 18:20 TSH 2.54 uIU/mL (0.27 -4.20) 10/10/22 18:20 Salicylates < 0.3 mg/dL (3-10 ) L 10/10/22 18:20 Urine Opiates Scre en Negative ng/mL (N egative) 10/10/22 17:58 Acetaminophen < 5.0 ug/mL (10-3 0) L 10/10/22 18:20 Ur Barbiturates Sc reen Negative ng/mL (N egative) 10/10/22 17:58 Ur Phencyclidine S crn Negative ng/mL (N egative) 10/10/22 17:58 Ur Amphetamines Sc reen Negative ng/mL (N egative) 10/10/22 17:58 U Benzodiazepines Scrn Negative ng/mL (N egative) 10/10/22 17:58 Urine Cocaine Scre en Negative ng/mL (N egative) 10/10/22 17:58 U Marijuana (THC) Screen Negative ng/mL (N egative) 10/10/22 17:58 Ethyl Alcohol < 10 mg/dL (0-10) 10/10/22 18:20 Vitals: Last Vital Signs Temp 98.3 F 10/14/22 20:33 Pulse 86 10/14/22 20:33 Resp 18 10/14/22 20:33 BP 122/71 10/14/22 20:33 Pulse Ox 95 10/14/22 20:33 O2 Del Method Room Air 10/14/22 20:33 Discharge Plan Discharge Patient Disposition: Home Condition: Stable Prescriptions: Continued methylphenidate HCl 54 mg tablet extended release 24hr 54 mg PO DAILY omeprazole 40 mg capsule,delayed release(DR/EC) 40 mg PO DAILY fluoxetine 20 mg capsule 20 mg PO DAILY Discharge Orders: Discharge Order (Routine); Ordered 10/15/22 Ordered By: Tomás Swanson Referrals: [facility] [Outside] - 10/24/22 11:30 am (Initial assessment set for 10/24/22 11:30am. ) Donta Walker MD [Primary Care Provider] - 10/23/22 9:40 am (Follow up) Discharge Diet: Regular Discharge Activity: Resume usual activity Patient Instructions: Opioid Safety Discharge Attestations NPU Time Spent in Discharge Care*: less than 30 min Specific Discharge Activities: Specific discharge activities: educating patient, discussing with registered nurse hh case manager/social workers/dc planners, documenting/other paperwork and evaluating patient/reviewing data Coding Level of Care Code Acute Chg FW DC note Diagnoses Suicidal ideation R45.851 ADHD F90.9 Borderline intellectual functioning R41.83 Partner relational problem Z63.0 Intermittent explosive disorder F63.81
[2022-10-15 14:00] VITALS: BP 120/82; PULSE 80; RESP 14; TEMP 36.7; O2SAT 97
[2022-10-15 14:32] VITALS: BP 120/82; PULSE 80; RESP 14; TEMP 36.7; O2SAT 97
== END 2022-10-15 15:04 | disposition home or self-care (01) | DRG 883 ==
LOC: ER 17:53 → NP 18:13
PROVIDERS: Admitting Provider Psychiatry & Neurology Psychiatry; Emergency Provider Emergency Medicine; PCP Family Medicine; Visit Provider Psychiatry & Neurology Psychiatry
DX: F63.81 Intermittent explosive disorder (principal); R45.851 Suicidal ideations; Z87.891 Personal history of nicotine dependence; F90.9 Attention-deficit hyperactivity disorder, unspecified type; R41.83 Borderline intellectual functioning; Z63.0 Problems in relationship with spouse or partner; Z81.8 Family history of other mental and behavioral disorders; Z81.3 Family history of other psychoactive substance abuse and dependence
CPT/HCPCS: 36415; 80053; 80306; 80307; 84443; 85025; 97150; 97165; 99238; 99285

== ENCOUNTER 2022-10-25 07:42 | Outpatient (CLI) | payer MEDICARE, MEDICAID, SELFPAY ==
--- NOTE | 2022-10-25 07:57 | CT_ITS ---
WS: [id number] CT NECK TECHNIQUE: Contrast-enhanced CT of the neck with coronal and sagittal reformatted images. CLINICAL INFORMATION: NONTOXIC SINGLE THYROID NODULE/PAIN IN THROAT/DYSPHAGIA COMPARISON: None. DLP: 252.[address] scans at [facility] use at least one of these dose optimization techniques: automated e xposure control; mA and/or kV adjustment per patient size (includes targeted exams where dose is matc hed to clinical indication); or iterative reconstruction. FINDINGS: Palpable marker LEFT neck indicated by a BB. No evidence of subcutaneous mass or lesion deep to the p alpable marker. Normal underlying sternocleidomastoid in this area. Incidental tiny subcutaneous vein just adjacent to the palpable marker. Mastoid air cells well aerated. Frontal sinuses are well aerated. Parotid glands are normal. Normal s ubmandibular glands. No cervical lymphadenopathy. Prominent jugulodigastric lymph nodes bilaterally w ithin normal limits. Normal posterior nasopharynx. Normal parapharyngeal fat. Prominent palatine tons ils with a few tonsillar phleboliths. Mild narrowing of the posterior oropharynx. No evidence of supr aglottic or glottic mass. Normal vallecula and piriform sinuses. Normal subglottic airway. Normal tom ttis. Thyroid gland is normal. Lung apices are well aerated. Straightening of the normal cervical lordosis with mild spondylitic gina nges. Disc osteophyte complex C5-C6 with mild central canal stenosis. CT/CT neck w con* [id number] IMPRESSION: 1. No abnormalities deep to the palpable marker LEFT neck. 2. Normal salivary glands. 3. No evidence of supraglottic, glottic, or subglottic mass 4. Prominent palate seen tonsils with mild narrowing of the posterior orophary nx. Few tonsillar phleboliths. 5. No cervical lymphadenopathy. 6. Mild spondylitic changes cervical spine with mild central canal stenosis C5 -C6.
--- NOTE | 2022-10-25 07:57 | FL_ITS ---
WS: [id number] Barium swallow and esophagram, 10/25/2022 Clinical Data: NONTOXIC CORNELL THYROID NODULE/PAIN IN THROAT/DYSPHAGIA Comparison: None. Fluoroscopy time: 0min [id number] # of spot films: 24 Findings: The patient swallowed the thick and thin barium, and it flowed through the hypopharynx without hesita tion. No stricture, mass, polyp or erosion was seen. No aspiration or penetration occurred. The barium entered the esophagus and there was normal motility throughout. No hiatal hernia, reflux, stricture, polyp, mass, erosion or ulcer was noted. FL/FL barium swallow [id number] Impression: Normal esophagram.
[2022-10-25] MEDS: iohexol 350 mg/mL 500 mL Btl (per mL) IV (08:16)
== END 2022-10-25 07:43 | disposition home or self-care (01) ==
PROVIDERS: PCP Family Medicine; Visit Provider Specialist
DX: E04.1 Nontoxic single thyroid nodule (principal); R07.0 Pain in throat; R13.19 Other dysphagia
CPT/HCPCS: 70491; 74220; Q9967

== ENCOUNTER 2022-11-01 07:14 | Outpatient (CLI) | payer MEDICARE, MEDICAID, SELFPAY ==
--- NOTE | 2022-11-01 07:40 | FL_ITS ---
WS: [id number] FL barium swallow modifd [id number] REASON FOR EXAM: Other dysphagia FLUOROSCOPY TIME: 1min [id number] # OF SPOT FILMS: None FINDINGS: Patient was examined in the upright lateral sitting position. The examination was supervised by the speech therapy department. The swallowing of varying consistencies of barium was monitored fluoroscopically with video recording . Detailed analysis and report of the swallowing will be rendered by the speech therapy department. FL/FL barium swallow modifd [id number] IMPRESSION: Modified barium swallow as above.
== END 2022-11-01 07:15 | disposition home or self-care (01) ==
PROVIDERS: PCP Family Medicine; Visit Provider Specialist
DX: E04.1 Nontoxic single thyroid nodule (principal); R13.19 Other dysphagia; R07.0 Pain in throat
CPT/HCPCS: 74230; 92611

== ENCOUNTER 2023-03-31 12:05 | Emergency (ER) | payer MEDICARE, MEDICAID, SELFPAY ==
--- NOTE | 2023-03-31 12:10 | ECG_ITS ---
[facility] Test Date: 2023-03-31 Pat Name: Florentin Patton Department: Room: Gender: Male C Python Developer: : [id number] Requested By: Victorino Awan Order Number: [id number] Grisel MD: Sharona Suazo M.D. Measurements Intervals [place] Rate: 60 P: 27 NM: 146 QRS: 20 QRSD: 85 T: 32 QT: 376 QTc: 377 Interpretive Statements SINUS RHYTHM Compared to ECG 06/22/2020 23:47:32 Sinus arrhythmia no longer present Electronically Signed On 03-31-2023 18:32:40 LEAD INFRASTRUCTURE ARCHITECT by Sharona Suazo M.D. [email or web address]
[2023-03-31 12:12] VITALS: BP 122/81; PULSE 58; RESP 18; TEMP 36.4; O2SAT 99; BMI 35.2
--- NOTE | 2023-03-31 12:28 | XR_ITS ---
WS: [email or web address] Exam: XR chest 1V portable [id number] Date/Time of Exam: 03/31/2023 12:28 PM Reason For Exam: cp Comparison 04/19/2018. Findings: The lungs are clear and fully expanded. Costophrenic angles are sharp. No infiltrates. Bronchovascula r relief appears normal. Cardiac silhouette is unremarkable. Bony elements are intact. IMPRESSION: Unremarkable chest radiograph.
[2023-03-31 12:56] LABS: Basophils % 0.5 %; Eosinophils # 0.1 10^3/uL (0.0-0.8); Eosinophils % 1.3 %; Hematocrit 43.9 % (37-53); Lymphocytes # 1.6 10^3/uL (0.8-4.8); Lymphocytes % 25.6 %; Mean Corpuscular HGB Conc 34.2 g/dL (30-55); Mean Corpuscular Hemoglobin 30.6 pg (27-33); Mean Corpuscular Volume 89.6 fl (82-101); Mean Platelet Volume 9.1 fL (7.4-10.4); Monocytes # 0.6 10^3/uL (0.2-0.9); Monocytes % 8.9 %; Neutrophils # 3.97 10^3/uL (1.8-7.7); Neutrophils % 63.4 %; Nucleated Red Blood Cells % 0 %; Platelet Count 211 10^3/cmm (157-399); Red Cell Distribution Width 12.6 % (12.1-15.1); White Blood Count 6.26 10^3/uL (3.29-11.43)
[2023-03-31 13:12] LABS: Alanine Aminotransferase 335 U/L (0-41); Albumin Level 4.4 g/dL (3.5-5.2); Alkaline Phosphatase 105 U/L (40-130); Anion Gap 12.4 (5-19); Aspartate Amino Transferase 464 U/L (0-40); Blood Urea Nitrogen 19 mg/dL (6-20); Calcium 9.6 mg/dL (8.5-10.5); Carbon Dioxide 28 mmol/L (22-29); Chloride 102 mmol/L (98-107); Globulin 2.8 g/dL (1.3-4.6); Glucose 102 mg/dL (65-115); Lipase 43 U/L (13-60); Osmolality Calculated 288 mOsm/kg (285-295); Potassium 4.4 mmol/L (3.5-5.1); Sodium 138 mmol/L (136-145); Total Bilirubin 2.4 mg/dL (0.15-1.2); Total Protein 7.2 g/dL (6.6-8.7)
[2023-03-31 13:15] LABS: Troponin(5th) Baseline < 6 ng/L (0-15)
--- NOTE | 2023-03-31 13:20 | CT_ITS ---
WS: [id number] CTA CHEST WITH ABDOMEN AND PELVIS TECHNIQUE: Contrast enhanced CTA of the chest, with abdomen, and pelvis with coronal and sagittal ref ormatted images and additional MIP Images. CLINICAL INFORMATION: sob COMPARISON: None. DLP: 1870.[address] scans at [facility] use at least one of these dose optimization techniques: automated e xposure control; mA and/or kV adjustment per patient size (includes targeted exams where dose is matc hed to clinical indication); or iterative reconstruction. FINDINGS: Proximal main pulmonary arteries are normal. Normal segmental and subsegmental pulmonary arteries. No evidence of pulmonary embolus. 1.4 cm LEFT thyroid nodule. Normal caliber thoracic aorta. Shallow inspiration. Lungs are well aerate d. No acute pulmonary infiltrates. No focal pneumonia or pleural fluid. No mediastinal or hilar lymph adenopathy. No axillary lymphadenopathy. Hepatomegaly. Diffuse fatty infiltration of the liver. Normal portal vein and splenic vein. Normal GE junction. Air-fluid level in the stomach. Normal pancreas. Normal spleen. Adrenal glands are normal. Normal renal parenchymal enhancement. No hydronephrosis. Normal caliber abdominal aorta. Normal appendix in the RIGHT lower quadrant. Incidental fat-containing LEFT inguinal hernia. Tiny fat -containing umbilical hernia. No other suspicious findings. IMPRESSION: 1. No evidence of pulmonary embolus. 2. Shallow inspiration. Lungs are well aerated. No acute pulmonary infiltrates. 3. Hepatomegaly. Diffuse fatty filtration of the liver. 4. No hydronephrosis in either kidney. 5. Normal appendix in the RIGHT lower quadrant. No evidence of acute appendicitis. 6. No other acute findings.
--- NOTE | 2023-03-31 13:28 | ED_ITS ---
HPI - Chest Pain General: Chief Complaint: Chest Pain Stated Complaint: chestpain, sob Time Seen by Provider: 03/31/23 13:08 Source: patient Mode of arrival: ambulatory Limitations: no limitations History of Present Illness: 37-year-old male states over the last 2 days has been having chest pains. [place] it is mainly with laying flat and with deep breaths. He states a very sharp pain when he takes a deep breath then along with some shortness of breath. No history of heart disease he denies any vomiting or diarrhea denies any abdominal pain denies any radiation of his pain. Associated symptoms: Reports dyspnea; Deny abdominal pain, fever(s), nausea or vomiting Review of Systems Const: Denies: fever(s), chills, body aches or change in appetite ENMT: Denies: throat pain or dental pain Card: Reports: chest pain Resp: Reports: dyspnea GI: Denies: abdominal pain, nausea, vomiting or diarrhea Musc: Denies: neck pain or back pain Skin/Breast: Denies: rash Neuro: Denies: headache(s) PFS ED PFSH: Medical History No pertinent family history Surgical History (Updated 01/06/22 @ 18:46 by NICCI Ramirez) No pertinent past surgical history Social History Smoking and tobacco/nicotine status: never used tobacco/nicotine Second hand smoke exposure: No Alcohol intake: never Substance/Drug Use: never Physical Exam Const: COMMON NORMALS: no acute distress, patient oriented x3 and healthy appearing HENMT: COMMON NORMALS: normocephalic and atraumatic HEAD & SCALP: normocephalic and atraumatic Eye: COMMON NORMALS: Equal, round and reactive pupils present and EOMs intact bilaterally PUPIL: Yes Equal, round and reactive pupils present Neck/C-Spine: COMMON NORMALS: full ROM and supple Chest: COMMONS NORMALS: normal inspection of the chest and normal palpation of entire chest wall Resp: COMMON NORMALS: normal respiratory effort, No retractions, No use of accessory muscles and clear to auscultation bilaterally AUSCULTATION: clear to auscultation bilaterally Cardio: COMMON NORMALS: regular rate, regular rhythm and No murmurs present (C ardio) RATE: regular rate RHYTHM: regular rhythm GI: COMMON NORMALS: Normal to inspection, nondistended, normoactive bowel sounds present, Soft to palpation, non-tender and no masses PALPATION: Yes Soft to palpation Extremity: COMMON NORMALS: normal to inspection and full ROM Neuro: COMMON NORMALS: patient oriented x3, moves all extremities and no focal motor deficits Psych: COMMON NORMALS: mental status grossly normal, Normal thought process present and cooperative THOUGHT PROCESS: Normal thought process present Skin: COMMON NORMALS: no rashes or lesions noted and no wounds GENERAL SKIN EXAM: no rashes or lesions noted Course Vital Signs: Vital signs: Vital Signs Temperature 97.5 F L 03/31/23 12:12 Pulse Rate 64 03/31/23 13:46 Respiratory Rate 28 H 03/31/23 13:46 Blood Pressure 124/72 03/31/23 13:46 Pulse Oximetry 100 03/31/23 13:46 Oxygen Delivery Me thod Room Air 03/31/23 12:12 MDM - Chest Pain Medical Decision Making Patient presents for chest pain is likely pleuritic in nature CT of his chest is normal as blood work here is normal as well no signs of acute coronary syndrome. Does have a slightly elevated liver enzymes and bilirubin CT of his abdomen was normal signs of fatty infiltration of his liver. I did inform him of these findings and informed he needs to follow-up with his PCP in 1 to 2 weeks for repeat blood draw and his bilirubin and liver enzymes we will prescribe Naprosyn for his pain he is return if worsening he understands agrees to plan. Medical Records I reviewed the patient's medical records. Lab Data I reviewed the patient's lab results. 03/31/23 12:45 03/31/23 12:45 Laboratory Results WBC 6.26 10^3/uL (3.29-11.43) 03/31/23 12:45 RBC 4.90 10^6/uL (3.85-5.65) 03/31/23 12:45 Hgb 15.00 g/dL (11.27-16.99) 03/31/23 12:45 Hct 43.9 % (37-53) 03/31/23 12:45 MCV 89.6 fl (82-101) 03/31/23 12:45 MCH 30.6 pg (27-33) 03/31/23 12:45 MCHC 34.2 g/dL (30-55) 03/31/23 12:45 RDW 12.6 % (12.1-15.1) 03/31/23 12:45 Plt Count 211 10^3/cmm (157-399) 03/31/23 12:45 MPV 9.1 fL (7.4-10.4) 03/31/23 12:45 Neut % (Auto) 63.4 % 03/31/23 12:45 Lymph % (Auto) 25.6 % 03/31/23 12:45 Dickenson % (Auto) 8.9 % 03/31/23 12:45 Eos % (Auto) 1.3 % 03/31/23 12:45 Baso % (Auto) 0.5 % 03/31/23 12:45 Neut # (Auto) 3.97 10^3/uL (1.8-7.7) 03/31/23 12:45 Lymph # (Auto) 1.6 10^3/uL (0.8-4.8) 03/31/23 12:45 Dickenson # (Auto) 0.6 10^3/uL (0.2-0.9) 03/31/23 12:45 Eos # (Auto) 0.1 10^3/uL (0.0-0.8) 03/31/23 12:45 Baso # (Auto) 0.0 10^3/uL (0.0-0.1) 03/31/23 12:45 Nucleated RBC % (auto) 0 % 03/31/23 12:45 Nucleated RBCs # 0.0 /100WBC 03/31/23 12:45 Sodium 138 mmol/L (136-145) 03/31/23 12:45 Potassium 4.4 mmol/L (3.5-5.1) 03/31/23 12:45 Chloride 102 mmol/L (98-107) 03/31/23 12:45 Carbon Dioxide 28 mmol/L (22-29) 03/31/23 12:45 Anion Gap 12.4 (5-19) 03/31/23 12:45 BUN 19 mg/dL (6-20) 03/31/23 12:45 Creatinine 1.0 mg/dL (0.7-1.2) 03/31/23 12:45 GFR Calculation 85.0 mL/min (90-130) L 03/31/23 12:45 Glucose 102 mg/dL (65-115) 03/31/23 12:45 Calculated Osmolality 288 mOsm/kg (285-295) 03/31/23 12:45 Calcium 9.6 mg/dL (8.5-10.5) 03/31/23 12:45 Total Bilirubin 2.4 mg/dL (0.15-1.2) H 03/31/23 12:45 AST 464 U/L (0-40) H 03/31/23 12:45 ALT 335 U/L (0-41) H 03/31/23 12:45 Alkaline Phosphatase 105 U/L (40-130) 03/31/23 12:45 Troponin T Baseline < 6 ng/L (0-15) 03/31/23 12:45 Total Protein 7.2 g/dL (6.6-8.7) 03/31/23 12:45 Albumin 4.4 g/dL (3.5-5.2) 03/31/23 12:45 Globulin 2.8 g/dL (1.3-4.6) 03/31/23 12:45 Lipase 43 U/L (13-60) 03/31/23 12:45 All radiology interpretation(s) finalized by discharge EKG Data EKG 1: I personally reviewed and interpreted this EKG as follows: EKG interpretation date: 03/31/23 EKG interpretation time: 12:10 Interpretation: nsr hr [address] or t wave abnormalities qrs 85 qtc 377 Discharge Plan Discharge Patient Disposition: Home Clinical Impression: Chest pain, Elevated liver enzymes Condition: Stable Prescriptions: New Naprosyn 500 mg tablet 500 mg PO BID PRN (Reason: pain) Qty: 20 0RF No Action methylphenidate HCl 54 mg tablet extended release 24hr 54 mg PO DAILY omeprazole 40 mg capsule,delayed release(DR/EC) 40 mg PO DAILY fluoxetine 20 mg capsule 20 mg PO DAILY Discharge Orders: Discharge ED (Routine); Ordered 03/31/23 Ordered By: Victorino Awan Referrals: Mickey Hernandez MD [Primary Care Provider] - 4-7 days Discharge Diet: Advance as tolerated Discharge Activity: Resume usual activity Patient Instructions: Chest Pain (ED) Coding Level of Care Code ED Supervisor Fertilizer for Chg Fwd
[2023-03-31] MEDS: iohexol 350 mg/mL 500 mL Btl (per mL) IV (13:33)
[2023-03-31 13:46] VITALS: BP 124/72; PULSE 64; RESP 28; O2SAT 100
[2023-03-31] MEDS: ondansetron 2 mg/ML SDV 2 mL 4 MG IVP (14:26)
[2023-03-31] MEDS: morphine 4 mg/mL SDV 1 mL IVP (14:26)
== END 2023-03-31 14:50 | disposition home or self-care (01) ==
PROVIDERS: Emergency Provider Emergency Medicine; PCP Family Medicine
DX: R07.9 Chest pain, unspecified (principal); R74.8 Abnormal levels of other serum enzymes
CPT/HCPCS: 36415; 71045; 71275; 74177; 80053; 83690; 84484; 85025; 93005; 96374; 96375; 99285; J2270; J2405; Q9967

== ENCOUNTER → 2024-02-12 13:17 | Outpatient (BNVA) | payer MEDICARE, MEDICAID, SELFPAY | PROVIDERS: PCP Family Medicine; Visit Provider Registered Nurse Neonatal Intensive Care | DX: J02.9 Acute pharyngitis, unspecified (principal) | CPT/HCPCS: 87880 ==

== ENCOUNTER → 2025-02-18 09:42 | Outpatient (BNVA) | payer MEDICARE, MEDICAID, SELFPAY | PROVIDERS: PCP Family Medicine; Visit Provider Nurse Practitioner Family | DX: D22.5 Melanocytic nevi of trunk (principal); L81.4 Other melanin hyperpigmentation; L57.8 Other skin changes due to chronic exposure to nonionizing radiation; L91.8 Other hypertrophic disorders of the skin; Z78.9 Other specified health status; R20.8 Other disturbances of skin sensation; L53.8 Other specified erythematous conditions | CPT/HCPCS: 17110; 99203 ==